=== PATIENT | male | born 1940 | race Caucasian/White ===

== ENCOUNTER → 2021-01-02 | Outpatient (CLI) | payer MEDICARE, OTHER ==
[2021-01-03 08:13] LABS: RHEUMATOID ARTHRITIS FACTOR <10.0 IU/mL (0.0-13.9)
[2021-01-03 16:09] LABS: LYME IGG/IGM AB <0.91 ISR (0.00-0.90)
[2021-01-05 13:08] LABS: RPR Reactive (Non Reactive); TREPONEMA PALLIDUM ANTIBODIES Non Reactive (Non Reactive)
[2021-01-05 16:10] LABS: ALDOLASE 3.7 U/L (3.3-10.3)
== END ==
LOC: LAB 10:20
PROVIDERS: Psychiatry & Neurology Neurology
DX: M62.541 Muscle wasting and atrophy, not elsewhere classified, right hand (principal); R29.898 Other symptoms and signs involving the musculoskeletal system; M62.542 Muscle wasting and atrophy, not elsewhere classified, left hand; G56.03 Carpal tunnel syndrome, bilateral upper limbs; R60.0 Localized edema; R20.0 Anesthesia of skin; G61.81 Chronic inflammatory demyelinating polyneuritis; M51.36 Other intervertebral disc degeneration, lumbar region; Z91.81 History of falling
CPT/HCPCS: 36415; 72100; 82085; 82550; 82607; 82746; 83921; 86038; 86431; 86592; 86593; 86618; 86780